=== PATIENT | female | born 1975 | race Caucasian/White ===

== ENCOUNTER 2021-08-10 19:14 | Observation (INO) | payer OTHER ==
[2021-08-10 19:23] VITALS: TEMP 98.3; BMI 32.0
[2021-08-10] MEDS ORDERED: MAG HYDROX/AL HYDROX/SIMETH 30 ML UNIT-DOSE CUP PO ONE (19:45)
[2021-08-10] MEDS ORDERED: ONDANSETRON 4 MG TABLET PO ONE (19:45)
[2021-08-10] MEDS ORDERED: FAMOTIDINE 20 MG TABLET PO ONE (19:46)
[2021-08-10] MEDS ORDERED: FAMOTIDINE 20 MG TABLET ONE (19:54)
[2021-08-10] MEDS ORDERED: ONDANSETRON *ODT* 4 MG TABLET ONE (19:54)
[2021-08-10] MEDS ORDERED: MAG HYDROX/AL HYDROX/SIMETH 30 ML UNIT-DOSE CUP ONE (19:55)
[2021-08-10] MEDS ORDERED: SODIUM CHLORIDE 0.9% 500 ML INFUS.BAG IV ONE (20:06)
[2021-08-10 20:29] LABS: BASO % 0.6 % (0-2.0); EOS % 0.3 % (0-4.5); HEMOGLOBIN 12.6 GM/dL (10.7-15.3); LYMPH % 17.3 % (8-40); MCH 26.2 pg (25.7-33.7); MCHC 33.9 g/dl (32.0-36.0); MEAN CELL VOLUME 77.4 fl (80-96); MEAN PLT VOLUME 8.6 fl (7.5-11.1); MONO % 4.8 % (3.8-10.2); PLATELET COUNT 281 10^3/uL (134-434); RBC 4.79 M/mm3 (3.60-5.2); RDW 17.6 % (11.6-15.6); WHITE BLOOD COUNT 9.4 K/mm3 (4.0-10.0)
[2021-08-10 20:49] LABS: BLOOD UREA NITROGEN 5.4 mg/dL (7-18)
[2021-08-10 20:52] LABS: CREATININE 0.7 mg/dL (0.55-1.3)
[2021-08-10 20:54] LABS: BILIRUBIN,TOTAL 0.2 mg/dL (0.2-1); TOT PROT 7.8 g/dl (6.4-8.2)
[2021-08-10] MEDS ORDERED: METOCLOPRAMIDE HCL INJECTION 10 MG/2 ML VIAL IVPUSH ONE (21:25)
[2021-08-10] MEDS ORDERED: METOCLOPRAMIDE HCL INJECTION 10 MG/2 ML VIAL ONE (21:55)
[2021-08-10] MEDS ORDERED: MECLIZINE HCL 25 MG TABLET (FP) PO ONE (22:51)
[2021-08-10] MEDS ORDERED: MECLIZINE HCL 25 MG TABLET (FP) ONE (23:07)
[2021-08-11] MEDS ORDERED: SODIUM CHLORIDE 1,000 ML IV SCH (02:15)
[2021-08-11] MEDS ORDERED: METOCLOPRAMIDE HCL INJECTION 10 MG/2 ML VIAL IVPUSH PRN (02:15)
[2021-08-11] MEDS ORDERED: MELATONIN 5 MG TABLETS PO ONE (02:18)
[2021-08-11] MEDS ORDERED: MELATONIN 5 MG TABLETS ONE (02:35)
[2021-08-11 06:01] LABS: BASO % 0.3 % (0-2.0); EOS % 0.5 % (0-4.5); HEMATOCRIT 36.2 % (32.4-45.2); HEMOGLOBIN 12.3 GM/dL (10.7-15.3); LYMPH % 28.6 % (8-40); MCH 26.3 pg (25.7-33.7); MCHC 33.8 g/dl (32.0-36.0); MEAN CELL VOLUME 77.7 fl (80-96); MEAN PLT VOLUME 8.9 fl (7.5-11.1); MONO % 5.7 % (3.8-10.2); NEUT % 64.9 % (42.8-82.8); PLATELET COUNT 287 10^3/uL (134-434); RBC 4.67 M/mm3 (3.60-5.2); RDW 17.9 % (11.6-15.6); WHITE BLOOD COUNT 11.1 K/mm3 (4.0-10.0)
[2021-08-11 06:23] LABS: CALCIUM 8.4 mg/dL (8.5-10.1)
[2021-08-11 06:24] LABS: ALBUMIN 3.5 g/dl (3.4-5.0); BLOOD UREA NITROGEN 4.2 mg/dL (7-18); MAGNESIUM 1.6 mg/dL (1.8-2.4)
[2021-08-11 06:27] LABS: CREATININE 0.7 mg/dL (0.55-1.3); PHOSPHOROUS 3.4 mg/dL (2.5-4.9)
[2021-08-11 06:28] LABS: BILIRUBIN,TOTAL 0.3 mg/dL (0.2-1); IRON SERUM 26 ug/dL (50-175); TOT PROT 6.8 g/dl (6.4-8.2); TOTAL IRON BINDING CAPACITY 381 ug/dL (250-450)
[2021-08-11] MEDS ORDERED: MAGNESIUM 1GM/D5W - 1 GM/100 ML IVPB IVPB ONE (07:33)
[2021-08-11] MEDS ORDERED: MAGNESIUM SULF 50% (8.12 MEQ/2 ML-1 GM VIAL) IVPB ONE (07:45)
[2021-08-11 08:22] VITALS: BP 130/71; PULSE 76
[2021-08-11] MEDS ORDERED: FAMOTIDINE 20 MG TABLET PO SCH (10:00)
[2021-08-11] MEDS ORDERED: ENOXAPARIN NA (PORCINE) 40 MG/0.4 ML DISP.SYRIN SQ SCH (10:00)
== END 2021-08-11 09:50 | disposition home or self-care (01) ==
LOC: JER 19:14 → JERBED 23:52 → INTOOBSV 23:52
PROVIDERS: ADMIT Internal Medicine; ATTEND Internal Medicine
PROC: 3E033GC Introduction of Other Therapeutic Substance into Peripheral Vein, Percutaneous Approach (ICD-10-PCS; principal; 2021-08-10)
PROC: 3E0337Z Introduction of Electrolytic and Water Balance Substance into Peripheral Vein, Percutaneous Approach (ICD-10-PCS; 2021-08-10)
DX: J45.909 Unspecified asthma, uncomplicated (principal); F41.9 Anxiety disorder, unspecified; R42 Dizziness and giddiness; R11.2 Nausea with vomiting, unspecified; H55.00 Unspecified nystagmus; E72.12 Methylenetetrahydrofolate reductase deficiency; D25.9 Leiomyoma of uterus, unspecified; I34.1 Nonrheumatic mitral (valve) prolapse
CPT/HCPCS: 36415; 70450-TC; 80053; 83540; 83550; 83735; 84100; 84703; 85025; 93005; 93010; 96361; 96374; 96375; 99285-25; C9803; G0378; U0003; U0005